=== PATIENT | female | born 1985 | race Hispanic/Latino ===

== ENCOUNTER → 2024-03-26 | Day surgery (SDC) | payer OTHER ==
[~2024-03-26] MED LIST: GLUCAGON FOR INJ 1 MG VIAL ONE; LEXAPRO20 MG PO; LIDOCAINE HCL 2% LOCAL INJ 5 ML SDV VIAL INJ ONE; MAGNESIUM400 MG PO; MIDAZOLAM HCL 2 MG/2 ML VIAL ONE; MULTI-VITAMIN1 EACH PO; PROPOFOL IV EMULSION 10 MG/ML 50 ML VIAL IV ONE
[2024-03-26] MEDS: LACTATED RINGER'S 1,000 ML ONE (14:10)
[2024-03-26 16:13] VITALS: TEMP 97.1
[2024-03-26 16:45] VITALS: BP 110/76; PULSE 60; RESP 16; O2SAT 97
== END | disposition home or self-care (01) ==
LOC: OR 13:38
PROVIDERS: ATTEND Internal Medicine Gastroenterology
DX: K52.9 Noninfective gastroenteritis and colitis, unspecified (principal); K62.89 Other specified diseases of anus and rectum; K59.09 Other constipation; K64.8 Other hemorrhoids; Z71.3 Dietary counseling and surveillance; D68.9 Coagulation defect, unspecified; F41.9 Anxiety disorder, unspecified; F32.A Depression, unspecified; Z88.8 Allergy status to other drugs, medicaments and biological substances; Z88.6 Allergy status to analgesic agent; Z91.040 Latex allergy status; Z79.899 Other long term (current) drug therapy; Z68.36 Body mass index [BMI] 36.0-36.9, adult; Z86.711 Personal history of pulmonary embolism
CPT/HCPCS: 45380; J1610; J2001; J2250; J2704; J7121; 45378

== ENCOUNTER → 2025-03-26 | Outpatient (REF) | payer OTHER ==
[~2025-03-26] MED LIST changes: -GLUCAGON FOR INJ 1 MG VIAL ONE; -LIDOCAINE HCL 2% LOCAL INJ 5 ML SDV VIAL INJ ONE; -MIDAZOLAM HCL 2 MG/2 ML VIAL ONE; -PROPOFOL IV EMULSION 10 MG/ML 50 ML VIAL IV ONE
== END ==
LOC: US 08:23
PROVIDERS: ATTEND Nurse Practitioner
DX: K45.0 Other specified abdominal hernia with obstruction, without gangrene (principal); R10.84 Generalized abdominal pain
CPT/HCPCS: 76700; 76856